=== PATIENT | female | born 1980 | race Caucasian/White ===

== ENCOUNTER 2022-06-22 16:13 | Inpatient (IN) | payer MEDICAID, SELFPAY ==
[2022-06-22 16:14] VITALS: BP 130/85; PULSE 87; RESP 16; TEMP 36.3; O2SAT 97
[2022-06-22 16:15] VITALS: BP 130/85; PULSE 87; RESP 16; TEMP 36.3; O2SAT 97; BMI 43.2
--- NOTE | 2022-06-22 16:26 | EX.ED.DYSGE1 ---
HPI History of Present Illness Chief Complaint: Substance Abuse Informant: patient Narrative Narrative: Patient was sent over by [facility] for alcohol detox so she can get placed in the program on Saturday. She drinks about a liter of 90 proof vodka a day. If she does not drink she gets shakes occasional hallucinations nausea vomiting diarrhea and overall just does not feel well. Her last drink was about an hour ago. She last went through detox just over 2 weeks ago. But she could not get into [facility] and now she immediately went back to drinking. She states if she tries to quit she has withdrawal symptoms again. She has no physical complaints at this time. [facility] Medical History (Updated 06/22/22 @ 16:[address] Mikael Owens MD) Depression with anxiety Restless leg syndrome Medical History no medical history no medical history Home Medications Celexa 20 mg PO/SL DAILY 06/22/22 [History Last Taken Unknown] Sinemet 2 tablet PO/SL QHS 06/22/22 [History Last Taken Unknown] rotigotine 3 mg transdermal DAILY 06/22/22 [History Last Taken Unknown] Allergy/AdvReac Type Severity Reaction Status Date / Time ciprofloxacin [From Cipro] Allergy Anaphylaxis Verified 06/22/22 16:15 Sulfa (Sulfonamide Allergy Anaphylaxis Verified 06/22/22 16:15 Antibiotics) Family History no significant family his Surgical History History of cholecystectomy Previous section Social History Smoking Status: Current every day smoker tobacco type: smokeless tobacco ROS ROS ED Constitutional Constitutional ED: Denies chills, fever(s) or sweats Eyes Eyes: Denies change in vision Cardiovascular Cardiovascular: Denies chest pain Respiratory/Chest Respiratory/Chest: Denies cough or dyspnea Gastrointestinal Gastrointestinal: Denies abdominal pain, diarrhea, melena, nausea or vomiting Genitourinary Genitourinary ED: Denies dysuria Musculoskeletal Musculoskeletal: Denies myalgias Integumentary Denies rash Neurologic Neurologic: Denies paresthesias Endocrine Endocrinology: Denies polydipsia or polyuria Hematologic/Lymphatic Hematologic/Lymphatic: Denies easy bleeding or easy bruising Allergic/Immunologic Allergic/Immunologic ED: Denies urticaria EXAM Physical Exam Const Vital Signs: 06/22/22 16:15 06/22/22 16:14 Temperature 97.4 F L 97.4 F L Temperature Source Temporal Temporal Pulse Rate 87 87 Respiratory Rate 16 16 Blood Pressure 130/85 H 130/85 H Blood Pressure Mean 100 100 Pulse Ox 97 97 Oxygen Delivery Method Room Air Room Air Positive well nourished, well developed and obese General Appearance ED: well developed and NAD Nutritional Appearance: obese HEENT Reports moist mucous membranes Eyes General Eye ED: Negative for scleral icterus Neck no JVD Resp normal respiratory effort and clear to auscultation bilaterally Cardio regular rate and regular rhythm GI normal to inspection, nondistended, normoactive bowel sounds and non-tender Palpation: soft Back/Spine no CVA tenderness Extremity normal to inspection Neuro oriented x3 Psych mental status grossly normal Attitude: No agitated Mood & Affect: Negative for depressed, anxious or tearful Skin no rashes or lesions noted MDM MDM MDM Narrative Medical decision making narrative: Patient has no physical complaints. Her vitals are overall normal. She does not appear to be in withdrawal yet. She has a history of significant withdrawal and occasional hallucinations. She has not had seizures. I discussed the case with Dr. Quezada. She will be admitted for detox. Discharge Plan Triage Chief Complaint: Substance Abuse ED Provider: Mikael Owens Dx/Rx/DC Orders Clinical Impression: Alcohol abuse, Desire for detoxification Prescriptions: No Action Sinemet 2 tablet PO/SL QHS rotigotine 3 mg transdermal DAILY Celexa 20 mg PO/SL DAILY Primary Care Provider: Calli Huizar,Out of Referrals: Calli Huizar,Out of [Primary Care Provider] - Disposition Disposition: Acute Care Hospital [facility]
--- NOTE | 2022-06-22 16:33 | PCM.HP.STD ---
HPI - General General Date of Admission: 06/22/22 HPI Narrative RITA BANKS, is a 41 F who presents hospital requesting alcohol withdrawal. She was recently at [place] 2 weeks ago and immediately went back to drinking once she was discharged. She has already spoken with [facility] and there is a plan to be admitted to [facility] on Saturday. Her last drink was just prior to coming into the hospital so she is not going through active withdrawal at the moment but I do anticipate significant withdrawal symptoms, she states that while she has never had a seizure she has had significant hallucinations in the past during withdrawal. She states that the cause of this has to do with her mother's as well as the fact that her first marriage ended in divorce because of her drinking and she says that she still having grief reaction to that. [facility] Medical History (Updated 06/22/22 @ 16:[address] Mikael Owens MD) Depression with anxiety Restless leg syndrome Medical History no medical history Home Medications Celexa 20 mg PO/SL DAILY mood 06/22/22 [History Last Taken 06/21/22] Sinemet 2 tablet PO/SL QHS restless leg 06/22/22 [History Last Taken 06/21/22] rotigotine 3 mg transdermal DAILY restless legs 06/22/22 [History Last Taken 06/22/22] Allergy/AdvReac Type Severity Reaction Status Date / Time ciprofloxacin [From Cipro] Allergy Anaphylaxis Verified 06/22/22 16:15 Sulfa (Sulfonamide Allergy Anaphylaxis Verified 06/22/22 16:15 Antibiotics) Family History (Updated 06/23/22 @ 07:[address] Vishnu Quezada MD) Other CVA (cerebral vascular accident) Cancer Family History no significant family his Surgical History (Updated 06/22/22 @ 17:12 by Lety Chapa) Gastric bypass status for obesity H/O knee surgery H/O thyroidectomy History of cholecystectomy Previous section Social History Smoking Status: Current every day smoker tobacco type: smokeless tobacco ROS Constitutional Constitutional: Denies chills, fatigue, fever(s) or malaise Eyes Eyes: Denies blurry vision ENT HEENT: Denies headache(s) or nasal discharge Cardiovascular Cardiovascular: Denies chest pain, dyspnea on exertion or syncope Respiratory/Chest Respiratory/Chest: Denies cough, shortness of breath at rest or shortness of breath with exertion Gastrointestinal Gastrointestinal: Denies constipation, diarrhea, nausea or vomiting Genitourinary Genitourinary: Denies dysuria Neurologic Neurologic: Denies focal weakness, numbness or tremor(s) Psychiatric Psychiatric: Reports anxiety; Denies depression Vital Signs Vital Signs Vital Signs: 06/22/22 16:15 06/22/22 16:14 Temperature 97.4 F L 97.4 F L Temperature Source Temporal Temporal Pulse Rate 87 87 Respiratory Rate 16 16 Blood Pressure 130/85 H 130/85 H Blood Pressure Mean 100 100 Pulse Ox 97 97 Oxygen Delivery Method Room Air Room Air Weight Weight: 292 lb 12.382 oz Body Mass Index (BMI) 43.2 Physical Exam Narrative General: Alert, Oriented x3, Cooperative, No apparent distress HEENT: Atraumatic, PERRLA, EOMI, Normocephalic Oral: Moist Mucosa Neck: Supple, No JVD Lungs: Clear to auscultation, Normal air movement, No rhonchi, No wheeze, No rales Cardiovascular: Regular rate, Regular Rhythm, Normal S1, Normal S2, No murmurs Abdomen: Soft, Non Tender, Non-Distended, No Hepato-splenomegaly Extremities: No edema, Capillary Refill Less than 3 Seconds Skin: No rashes, No breakdown Musculoskeletal: No Tenderness to Palpation of Joints or Extremities Neurological: Cranial nerves II-XII grossly intact, Motor Exam 5/5 strength throughout, Sensory exam intact to light touch and pain Psych/Mental Status: Normal Affect, Appropriate Assessment & Plan Assessment/Plan (1) Alcohol abuse: PLAN: Plan 1. Alcohol abuse with withdrawal potential/anxiety/depression/tobacco abuse ? We will continue with the alcohol withdrawal protocol ? We will have her follow-up with [facility] on Saturday for possible inpatient admission ? Continue with Celexa ? Does not need nicotine patch, discussed cessation 2. Restless legs ? Stable ? Continue with Sinemet and rotigotine DVT: Ambulation Charges/Coding Visit Charges Inpatient E&M: 44177 Init Hosp L2
--- NOTE | 2022-06-22 16:35 | NURSING ---
MED SURG ALCOHOL DETOX CARMELINA
[2022-06-22 17:10] VITALS: BP 134/84; PULSE 89; RESP 16; TEMP 36.6; O2SAT 97
--- NOTE | 2022-06-22 17:31 | CM.ED ---
TIAN Note Referral Source: [facility] admission Referral Reason: DAVID OVERTON met with Hafsa and her father. Patient reports that she is here for alcohol detox. Patient is drinking 1 L of vodka a day. Patient has previously done detox at [place]. Patient is currently in an IOP at [facility]. Patient's last drink was at 3pm. Patient was advised of the [facility] program rules and in agreement. No questions or concerns voiced. SW called Sheldon, addiction therapist, and updated her. Plan: [facility] program Kim [place]
[2022-06-22 17:40] VITALS: BMI 42.5
[2022-06-22] MEDS: Phenobarbital 32.4 MG Tablet 64.8 MG PO ×2 (18:10→22:02)
[2022-06-22] MEDS: Ondansetron 8 MG Tablet PO (18:18)
[2022-06-22] MEDS: hydrOXYzine PAM 25 MG Capsule 50 MG PO (18:18)
[2022-06-22 21:58] VITALS: BP 132/96; PULSE 82; RESP 16; TEMP 36.8; O2SAT 98
[2022-06-22] MEDS: Gabapentin 300 MG Capsule PO (22:05)
[2022-06-23] MEDS: Phenobarbital 32.4 MG Tablet 64.8 MG PO ×6 (03:13→21:43)
[2022-06-23 03:14] VITALS: BP 113/74; PULSE 66; RESP 16; TEMP 36.7; O2SAT 98
[2022-06-23 06:31] VITALS: BP 129/75; PULSE 90; RESP 16; TEMP 36.7; O2SAT 96
[2022-06-23] MEDS: hydrOXYzine PAM 25 MG Capsule 50 MG PO ×2 (06:34→20:36)
[2022-06-23] MEDS: Folic Acid 1 MG Tablet PO (08:38)
[2022-06-23] MEDS: Thiamine Hydrochloride 100 MG Tablet PO (08:38)
[2022-06-23] MEDS: Citalopram 20 MG Tablet PO (08:38)
--- NOTE | 2022-06-23 09:04 | PCM.PN.HOSP ---
Subjective Subjective Doing well, no issues overnight Objective Data Objective Data Vital Signs: Vital Signs Temp Pulse Resp BP Pulse Ox O2 Del Method 98.1 F 90 16 129/75 H 96 Room Air 06/23/22 06:06/23/22 06:31 06/23/22 06:31 06/23/22 06:31 06/23/22 06:06/23/22 08:45 Oxygen Delivery Method Room Air Weight: 288 lb 1.6 oz Body Mass Index (BMI) 42.5 Physical Exam Narrative General: Alert, Oriented x3, Cooperative, No apparent distress HEENT: Atraumatic, PERRLA, EOMI, Normocephalic Oral: Moist Mucosa Neck: Supple, No JVD Lungs: Clear to auscultation, Normal air movement, No rhonchi, No wheeze, No rales Cardiovascular: Regular rate, Regular Rhythm, Normal S1, Normal S2, No murmurs Abdomen: Soft, Non Tender, Non-Distended, No Hepato-splenomegaly Extremities: No edema, Capillary Refill Less than 3 Seconds Skin: No rashes, No breakdown Musculoskeletal: No Tenderness to Palpation of Joints or Extremities Neurological: Cranial nerves II-XII grossly intact, Motor Exam 5/5 strength throughout, Sensory exam intact to light touch and pain Psych/Mental Status: Normal Affect, Appropriate Assessment & Plan Assessment/Plan (1) Alcohol abuse: PLAN: Plan 1. Alcohol abuse with withdrawal potential/anxiety/depression/tobacco abuse ? We will continue with the alcohol withdrawal protocol ? We will have her follow-up with [facility] on Saturday for possible inpatient admission ? Continue with Celexa ? Does not need nicotine patch, discussed cessation 2. Restless legs ? Stable ? Continue with Sinemet and rotigotine DVT: Ambulation Charges/Coding Visit Charges Inpatient E&M: 73231 Subs Hosp L2
[2022-06-23 10:00] VITALS: BP 112/62; PULSE 89; RESP 18; TEMP 37; O2SAT 97
--- NOTE | 2022-06-23 11:07 | ADDICTION ---
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 PT A+Ox4 and participated actively. All assessments completed, and placed in PT's chart. PT plans to f/u with individual counselor at [facility] for inpatient residential treatment and counseling services. PT will need transportation post d/c from [facility].
[2022-06-23] MEDS: Gabapentin 300 MG Capsule PO (12:24)
[2022-06-23 14:00] VITALS: BP 106/72; PULSE 65; RESP 18; TEMP 36.8; O2SAT 96
[2022-06-23 20:26] VITALS: BP 102/62; PULSE 75; RESP 18; TEMP 37; O2SAT 97
[2022-06-23] MEDS: 0.9% Saline Lock 10 ML Syringe IV (20:37)
[2022-06-23] MEDS: traZODone 100 MG Tablet PO (21:43)
[2022-06-24 02:15] VITALS: BP 93/68; PULSE 67; RESP 16; TEMP 36.6; O2SAT 95
[2022-06-24] MEDS: Phenobarbital 32.4 MG Tablet 64.8 MG PO ×6 (02:18→21:28)
[2022-06-24] MEDS: hydrOXYzine PAM 25 MG Capsule 50 MG PO (02:24)
[2022-06-24 05:37] VITALS: BP 108/73; PULSE 63; RESP 16; TEMP 36.8; O2SAT 97
[2022-06-24] MEDS: Folic Acid 1 MG Tablet PO (08:53)
[2022-06-24] MEDS: Thiamine Hydrochloride 100 MG Tablet PO (08:53)
[2022-06-24] MEDS: Citalopram 20 MG Tablet PO (08:53)
[2022-06-24] MEDS: Gabapentin 300 MG Capsule PO ×2 (08:53→17:02)
--- NOTE | 2022-06-24 10:42 | PCM.PN.HOSP ---
Subjective Subjective Doing well, no withdrawal-like symptoms currently Objective Data Objective Data Vital Signs: Vital Signs Temp Pulse Resp BP Pulse Ox O2 Del Method 98.2 F 63 16 108/73 97 Room Air 06/24/22 05:37 06/24/22 05:37 06/24/22 05:37 06/24/22 05:37 06/24/22 05:37 06/24/22 08:47 Oxygen Delivery Method Room Air Weight: 288 lb 1.6 oz Body Mass Index (BMI) 42.5 Intake & Output: Intake and Output for Last 24 Hours 06/23/22 06/24/22 06/25/22 03:59 03:59 03:59 Intake Total 800 / 800 Balance 800 / 800 Physical Exam Narrative General: Alert, Oriented x3, Cooperative, No apparent distress HEENT: Atraumatic, PERRLA, EOMI, Normocephalic Oral: Moist Mucosa Neck: Supple, No JVD Lungs: Clear to auscultation, Normal air movement, No rhonchi, No wheeze, No rales Cardiovascular: Regular rate, Regular Rhythm, Normal S1, Normal S2, No murmurs Abdomen: Soft, Non Tender, Non-Distended, No Hepato-splenomegaly Extremities: No edema, Capillary Refill Less than 3 Seconds Skin: No rashes, No breakdown Musculoskeletal: No Tenderness to Palpation of Joints or Extremities Neurological: Cranial nerves II-XII grossly intact, Motor Exam 5/5 strength throughout, Sensory exam intact to light touch and pain Psych/Mental Status: Normal Affect, Appropriate Assessment & Plan Assessment/Plan (1) Alcohol abuse: PLAN: Plan 1. Alcohol abuse with withdrawal potential/anxiety/depression/tobacco abuse ? We will continue with the alcohol withdrawal protocol ? We will have her follow-up with [facility] on Saturday for possible inpatient admission ? Continue with Celexa ? Does not need nicotine patch, discussed cessation 2. Restless legs ? Stable ? Continue with Sinemet and rotigotine DVT: Ambulation Charges/Coding Visit Charges Inpatient E&M: 55190 Subs Hosp L2
[2022-06-24 11:30] VITALS: BP 130/78; PULSE 78; RESP 18; TEMP 36.8; O2SAT 97
[2022-06-24 16:35] VITALS: BP 105/64; PULSE 79; RESP 18; TEMP 36.8; O2SAT 96
[2022-06-24 20:33] VITALS: BP 124/77; PULSE 73; RESP 16; TEMP 37.1; O2SAT 97
[2022-06-24] MEDS: traZODone 100 MG Tablet PO (21:28)
[2022-06-25] MEDS: Gabapentin 300 MG Capsule PO (02:49)
[2022-06-25] MEDS: Phenobarbital 32.4 MG Tablet 64.8 MG PO ×2 (02:49→07:45)
[2022-06-25 05:00] VITALS: BP 144/99; PULSE 66; RESP 14; TEMP 36.4; O2SAT 99
[2022-06-25] MEDS: hydrOXYzine PAM 25 MG Capsule 50 MG PO (05:56)
[2022-06-25] MEDS: Thiamine Hydrochloride 100 MG Tablet PO (07:46)
[2022-06-25] MEDS: Folic Acid 1 MG Tablet PO (07:46)
[2022-06-25 08:42] VITALS: BP 126/100; PULSE 63; RESP 16; TEMP 36.2; O2SAT 93
--- NOTE | 2022-06-25 08:50 | PCM.DC.SUM ---
Providers Date of Admission: 06/22/22 Date of Discharge: 06/25/22 Primary Care Physician: Nita Flores Reason For Visit: ETOH WITHDRAWAL Diagnosis Discharge Diagnosis (1) Alcohol abuse: Status: Acute Code(s): F10.10 - Alcohol abuse, uncomplicated Medications at Discharge Home Medications Celexa 20 mg PO/SL DAILY mood 06/22/22 Sinemet 2 tablet PO/SL QHS restless leg 06/22/22 rotigotine 3 mg transdermal DAILY restless legs 06/22/22 Hospital Course Summary of Care Provided Minutes Spent on Discharge: 35 Hospital Course: Patient is a 41-year-old female with multiple comorbidities including depression with anxiety tobacco dependence as well as alcohol dependence who presented with acute alcohol withdrawal 1. Acute alcohol withdrawal ? Admitted to regular nursing floor managed with phenobarb taper. Patient was transferred to [facility] residential facility once medically stable 2. Tobacco dependence - Counseled on cessation, offered nicotine patch for tobacco cravings 3. Depression with anxiety ? Did continue home meds 4. Restless leg syndrome ? On Sinemet as well as Rotigitine 5. DVT prophylaxis -low risk, did encourage early ambulation Physical Exam Narrative GENERAL: cooperative HEENT: Atraumatic; EYES; Anicteric, Normal Conjunctiva NECK; supple, normal thyroid, RESPIRATORY: Diminished to auscultation CARDIOVASCULAR: Regular S1 S2, GI: soft, normoactive bowel sounds, : No Renal angle tenderness; EXTREMITIES: No edema, no clubbing, MUSCULOSKELETAL: no muscle wasting NEURO: Awake; no lateralizing signs. SKIN: No Rash PSYCH; Flat affect Weight / BMI Weight Weight: 130.68 kg Body Mass Index (BMI) 42.5 D/C Instructions Discharge Diet: No restrictions Discharge Activity: Return to Normal Activity Call your doctor if you observe: Fever of 101 or Higher, Shortness of breath, Fainting spells and Chest pain Meaningful Use Info Meaningful Use Diagnoses (Choose all that apply): None applicable Discharge Plan Admission Admit Date/Time: 06/22/22 16:30 Attending Provider: Efren Haq Primary Care Provider: Nita Flores CNP Consulting Providers: Vishnu Quezada Discharge Orders/Prescriptions Prescriptions: Continued Sinemet 2 tablet PO/SL QHS rotigotine 3 mg transdermal DAILY Celexa 20 mg PO/SL DAILY Referrals / Follow Up: Nita Flores CNP [Other] [facility] Doctor,Out of [Non-Staff] - Disposition Disposition (needs filled in before D/C Order can be placed): Home, Self Care Charges/Coding Visit Charges Inpatient E&M: 24673 Disch Hosp
== END 2022-06-25 09:00 | disposition home or self-care (01) | DRG 775 ==
LOC: ED 16:41 → MS3 16:51
PROVIDERS: Admitting Provider Family Medicine; Emergency Provider Emergency Medicine; Visit Provider Internal Medicine
DX: F10.139 Alcohol abuse with withdrawal, unspecified (principal); E66.9 Obesity, unspecified; Z68.41 Body mass index [BMI] 40.0-44.9, adult; F17.220 Nicotine dependence, chewing tobacco, uncomplicated; F41.8 Other specified anxiety disorders; G25.81 Restless legs syndrome; F32.A Depression, unspecified; Y90.9 Presence of alcohol in blood, level not specified
CPT/HCPCS: 99283; 99406; A4216